=== PATIENT | male | born 1975 | race Caucasian/White ===

== ENCOUNTER 2017-04-16 13:08 | Inpatient (IN) | payer OTHER ==
[~2017-04-16] VITALS: Ht 185.4 cm; Wt 94.8 kg
--- NOTE | 2017-04-16 13:20 | NUR ---
REC'D AAOX4, SPEECH CLEAR. DENIES DIZZINES, C/O NV FOR PAST 2 DAYS. C/O HEARTBURN. ALSO STATES IS A HEAVY SMOKER AND REQUESTS PATCH. ON RA, NO SOB NOTED. NO ORDERS FOR TELE AT THIS TIME. IV SITE WNL. ORIENTED TO ROOM AND SURROUNDINGS. CALL LIGHT WITHIN REACH, PROVIDED REPORT TO KATELYNN GARCIA FOR CONTINUITY OF CARE.
[2017-04-16 13:51] VITALS: BP 102/66
[2017-04-16] MEDS ORDERED: LISINOPRIL20 MG PO (14:32)
[2017-04-16] MEDS ORDERED: CORE25 PO (14:32)
[2017-04-16] MEDS ORDERED: PRA10 PO (14:33)
--- NOTE | 2017-04-16 15:30 | NUR ---
AT 1330 - RECEIVED PATIENT FROM [facility] IN [place] VIA AMBULANCE. RECEIVED REPORT FROM JOSE GARY IN ER AT [place]. PATIENT SETTLED IN ROOM AND ATTEMPT MADE TO CONTACT DOCTOR FOR ADMISSION ORDERS. PATIENT IS AWAKE, ALERT AND ORIENTED X 4. VS WNL. AFEBRILE. RESPIRATIONS REGULAR. AT 1400 - SPOKE WITH DR WOODWARD. PATIENT HAS REQUESTED NICODERM PATCH - SAYS THAT HE SMOKES 1 PACK A DAY. AT 1435 - COMMENCED IV INFUSION OF NS AT 100 ML/HR. NICODERM PATCH APPLIED TO [facility]. DR WOODWARD AT BEDSIDE. PATIENT HAS EATEN LUNCH. NOW RESTING QUIETLY.
[2017-04-16 15:38] LABS: BASOPHIL % 0.4 % (0-2); PLATELET COUNT 194 x10^3mcL (130-400); RED CELL DISTRIBUTION WIDTH 12.4 % (11.5-14.5)
--- NOTE | 2017-04-16 15:44 | NUR ---
IV INFUSION INCREASED TO 140 ML/HR PER NEW ORDER.
[2017-04-16 16:03] LABS: FREE T4 0.96 ng/dL (0.76-1.46); T4(THYROXINE) 5.8 ug/dL (4.7-13.3)
[2017-04-16 16:06] LABS: T3 TOTAL 1.02 ng/mL
[2017-04-16 16:08] LABS: CALCIUM 7.4 mg/dL (8.5-10.1); CARBON DIOXIDE 15.8 mmol/L (21-32); MAGNESIUM 2.8 mg/dL (1.8-2.4); PHOSPHOROUS 8.4 mg/dL (2.5-4.9); POTASSIUM SERUM 4.1 mmol/L (3.5-5.1)
[2017-04-16 16:12] LABS: CHOLESTEROL/HDL RATIO 6.2
--- NOTE | 2017-04-16 16:25 | NUR ---
RECEIVED CALL FROM LAB WITH BUM/CR RESULTS OF 77/9.0. THIS IS A DOWNWARD TREND ACCORDING TO LABS RECEIVED FROM [facility]. DR WOODWARD NOTIFIED OF LATEST RESULTS. NO CHANGE IN ORDERS. PATIENT AWARE OF NEED FOR URINE SPECIMEN. CONTAINER PROVIDED.
[2017-04-16 18:00] VITALS: BP 106/74
[2017-04-16 18:25] LABS: MAGNESIUM 2.8 mg/dL (1.8-2.4); PHOSPHOROUS 7.3 mg/dL (2.5-4.9)
[2017-04-16 18:32] LABS: CALCIUM 7.5 mg/dL (8.5-10.1); CARBON DIOXIDE 18.1 mmol/L (21-32); POTASSIUM SERUM 4.1 mmol/L (3.5-5.1)
[2017-04-16 18:37] LABS: CREATININE SERUM 8.1 mg/dL (0.7-1.3)
--- NOTE | 2017-04-16 18:38 | NUR ---
RECEIVED CALL FROM LAB WITH BUN/CR OF 80/8.1 DOWNWARD TREND. PATIENT SALINE LOCKED FOR GOING TO CT FOR CT OG HEAD.
--- NOTE | 2017-04-16 19:25 | NUR ---
PATIENT BACK IN ROOM. IV INFUSION OF NS RESUMED AT 140ML/HR. URINE COLLECTED AND TAKEN TO LAB FOR UA AND UDS. CARE OF PATIENT ENDORSED TO NIGHT NURSE.
[2017-04-16 19:28] LABS: UA SPECIFIC GRAVITY 1.025 (1.005-1.035); microscopic required? YES; urine erythrocyte 1+ (NEGATIVE)
[2017-04-16 19:43] LABS: AMPHETAMINE QUAL UR NONE DETECTED (NEG <=1000)
--- NOTE | 2017-04-16 20:07 | NUR ---
RECEIVED REPORT FROM JOES PACE. PT RESTING IN BED COMFORTABLY IN NO ACUTE DISTRESS OR DISCOMFORT. AAOX4. ON TELE MON 8 SR. DENIES OF ANY CHEST DISCOMFORT. PER PULSES STRONG. NEG ON EDEMA. IN RA WITH SAT OF 97%. BREATHING EVENLY AND UNLABORED. NO SOB. LUNGS CTA. BS ACTIVE. ABD SOFT AND NON DISTENDED. VOIDS FREELY. AMBULATES STEADILY. SKIN DRY AND INTACT. DENIES OF ANY PAIN. IV ON PATENT. SAFETY MEASURES ENSURED. CALL LIGHT WITHIN REACH. WILL CONT TO MONITOR PT.
[2017-04-16 20:56] VITALS: BP 95/60
--- NOTE | 2017-04-17 05:07 | NUR ---
PT SLEPT COMFORTABLY THROUGH OUT THE NIGHT. WAS IN NO ACUTE DISTRESS OR DISCOMFORT. SAFETY MEASURES WERE ENSURED. CALL LIGHT WITHIN REACH.
[2017-04-17 05:45] VITALS: BP 102/64
[2017-04-17 06:29] LABS: CALCIUM 7.8 mg/dL (8.5-10.1); CARBON DIOXIDE 16.1 mmol/L (21-32); CREATININE SERUM 3.9 mg/dL (0.7-1.3); MAGNESIUM 2.8 mg/dL (1.8-2.4); PHOSPHOROUS 4.8 mg/dL (2.5-4.9); POTASSIUM SERUM 4.2 mmol/L (3.5-5.1)
[2017-04-17 06:45] LABS: BASOPHIL % 0.5 % (0-2); PLATELET COUNT 187 x10^3mcL (130-400); RED CELL DISTRIBUTION WIDTH 13.1 % (11.5-14.5)
--- NOTE | 2017-04-17 07:35 | NUR ---
RECEIVED PT IN NO ACUTE DISTRESS. AAOX4. BREATHING EVEN AND UNLABORED NO RA. NO SOB NOTED. DENIES DIZZINESS AT THIS TIME. IVF INFUSING. BED IN LOWEST POSITION, CALL LIGHT WITHIN REACH. WILL CONTINUE TO MONITOR.
[2017-04-17 10:28] VITALS: BP 98/58
--- NOTE | 2017-04-17 10:33 | NUR ---
DR. WOODWARD PAGED REGARDING PT'S HR DROPPING TO 37 WITH PAUSES. PT ASYMPTOMATIC AT THIS TIME. GETTING US RENAL WITH BLADDER DONE. WILL CONTINUE TO MONITOR.
[2017-04-17 12:13] LABS: CALCIUM 7.8 mg/dL (8.5-10.1); POTASSIUM SERUM 4.5 mmol/L (3.5-5.1)
--- NOTE | 2017-04-17 12:27 | NUR ---
PT RESTING IN BED. NO ACUTE DISTRESS. DENIES DIZZINESS. NO PAIN REPORTED. IVF INFUSING. FAMILY AT BEDSIDE. WILL CONTINUE TO MONITOR.
[2017-04-17 14:26] VITALS: BP 105/66
--- NOTE | 2017-04-17 18:19 | NUR ---
PT RESTING IN BED. NO ACUTE DISTRESS. DENIES DIZZINESS. AMBULATORY WITHOUT ASSIST, GAIT STEADY. DENIES PAIN. IVF INFUSING. BED IN LOWEST POSITION, CALL LIGHT WITHIN REACH. WILL CONTINUE TO MONITOR.
--- NOTE | 2017-04-17 19:36 | NUR ---
RECEIVED PT FROM PREVIOUS SHIFT NURSE. PT AOX4. TELE #8, SR, HR 74. DENIES CP/PRESSURE. PULSES PRESENT, NO EDEMA NOTED. LUNG SOUNDS CLEAR, ON RA. DENIES SOB/DIFFICULTY BREATHING. BOWEL SOUNDS ACTIVE. VOIDS FREELY. AMBULATORY. SKIN INTACT. IV IN L. HAND, INTACT AND PATENT. BED IN LOWEST POSITION. CALL LIGHT WITHIN REACH. WILL CONTINUE TO MONITOR.
[2017-04-17 20:56] VITALS: BP 116/79
--- NOTE | 2017-04-18 00:28 | NUR ---
PT RESTING IN BED. RR EVEN AND UNLABORED. NO ACUTE DISTRESS NOTED. BED IN LOWEST POSITON. CALL LIGHT WITHIN REACH. WILL CONTINUE TO MONITOR.
[2017-04-18 05:29] VITALS: BP 123/78
[2017-04-18 06:20] LABS: CARBON DIOXIDE 20.7 mmol/L (21-32); CHLORIDE SERUM 115 mmol/L (98-107); CREATININE SERUM 1.2 mg/dL (0.7-1.3); GFR1 > 60 mL/min; GLUCOSE SERUM 86 mg/dL (74-106); MAGNESIUM 2.1 mg/dL (1.8-2.4); PHOSPHOROUS 2.1 mg/dL (2.5-4.9); POTASSIUM SERUM 4.5 mmol/L (3.5-5.1); SODIUM SERUM 143 mmol/L (136-145)
[2017-04-18 06:43] LABS: BASOPHIL % 0.4 % (0-2); PLATELET COUNT 192 x10^3mcL (130-400); RED CELL DISTRIBUTION WIDTH 12.6 % (11.5-14.5)
--- NOTE | 2017-04-18 07:25 | NUR ---
RECEIVED PT. NOT IN ACUTE DISTRESS. AMBULATING TO BATHROOM. GAIT STEADY. NS INFUSING AT 200 ML/HR. BREATHING EVEN AND UNLABORED ON ROOM AIR. WILL CONTINUE TO MONITOR.
[2017-04-18 07:46] VITALS: BP 136/88
[2017-04-18 08:59] VITALS: BP 129/88
--- NOTE | 2017-04-18 09:34 | NUR ---
DR WOODWARD NOTIFIED OF PHOS 2.1. NO NEW ORDERS AT THIS TIME. WILL CONTINUE TO MONITOR.
[2017-04-18] MEDS ORDERED: NIC21 TD (11:45)
[2017-04-18] MEDS ORDERED: OSCD PO (11:46)
--- NOTE | 2017-04-18 11:53 | NUR ---
PT RESTING IN BED. NO ACUTE DISTRESS. DENIES DIZZINESS. DENIES PAIN. WILL CONTINUE TO MONITOR.
[2017-04-18 13:52] VITALS: BP 129/88
[2017-04-18 14:00] VITALS: BP 129/88
--- NOTE | 2017-04-18 14:23 | NUR ---
PT DISCHARGED TO HOME IN NO ACUTE DISTRESS. AWAKE, ALERT, AND ORIENTED. VSS. AMBULATORY. DISCHARGE EDUCATION PROVIDED, PT VERBALIZED UNDERSTANDING. INSTRUCTE PT TO FOLLOW UP WITH PCP. BELONGINGS WITH PT. IV DC'D INTACT. TELE REMOVED. YOEL BLAKE ACCOMPANIED PT TO DISCHARGE OFFICE.
== END 2017-04-18 14:27 | disposition home or self-care (01) | DRG 469 ==
LOC: DU 13:08 → MU 13:08 → DU 15:05
PROVIDERS: Family Medicine; ADMIT Family Medicine
DX: N17.0 Acute kidney failure with tubular necrosis (principal); G93.41 Metabolic encephalopathy; I42.6 Alcoholic cardiomyopathy; I95.9 Hypotension, unspecified; E44.0 Moderate protein-calorie malnutrition; E83.41 Hypermagnesemia; E83.39 Other disorders of phosphorus metabolism; E86.0 Dehydration; E83.51 Hypocalcemia; I10 Essential (primary) hypertension; F17.210 Nicotine dependence, cigarettes, uncomplicated; E78.2 Mixed hyperlipidemia; R73.03 Prediabetes; D64.9 Anemia, unspecified; R31.9 Hematuria, unspecified; H53.149 Visual discomfort, unspecified; Z53.29 Procedure and treatment not carried out because of patient's decision for other reasons; F12.90 Cannabis use, unspecified, uncomplicated; K21.9 Gastro-esophageal reflux disease without esophagitis; Z68.27 Body mass index [BMI] 27.0-27.9, adult; Z79.899 Other long term (current) drug therapy; Z82.49 Family history of ischemic heart disease and other diseases of the circulatory system
CPT/HCPCS: 83880; 84439; J7030; Q0092

== ENCOUNTER 2017-10-31 15:19 | Inpatient (IN) | payer OTHER ==
[~2017-10-31] VITALS: Ht 185.4 cm; Wt 95.7 kg
[~2017-10-31 15:19] MED LIST: CORE25 PO; LISINOPRIL20 MG PO; NIC21 TD; OSCD PO; PRA10 PO
[2017-10-31 18:14] LABS: CALCIUM 8.1 mg/dL (8.5-10.1); CARBON DIOXIDE 23.3 mmol/L (21-32); CHLORIDE SERUM 106 mmol/L (98-107); CREATININE SERUM 0.7 mg/dL (0.7-1.3); GFR1 > 60 mL/min; GLUCOSE SERUM 90 mg/dL (74-106); POTASSIUM SERUM 3.6 mmol/L (3.5-5.1); SODIUM SERUM 142 mmol/L (136-145)
[2017-10-31 18:16] LABS: BASOPHIL % 0.9 % (0-2); PLATELET COUNT 157 x10^3mcL (130-400); RED CELL DISTRIBUTION WIDTH 14.3 % (11.5-14.5)
[2017-10-31 18:18] LABS: ALBUMIN 3.6 g/dL (3.4-5.0); ALKALINE PHOSPHATASE 66 U/L (46-116); ALT/SGPT 91 U/L (16-63); AST/SGOT 76 U/L (15-37); BILIRUBIN TOTAL 0.4 mg/dL (0.20-1.00)
[2017-10-31 18:43] LABS: microscopic required? NO
[2017-10-31] MEDS ORDERED: ATIVAN1 MG PO (18:46)
[2017-10-31 19:18] LABS: UA SPECIFIC GRAVITY 1.025 (1.005-1.035); urine erythrocyte NEGATIVE (NEGATIVE)
[2017-10-31 19:27] LABS: AMPHETAMINE QUAL UR NONE DETECTED (NEG <=1000)
[2017-10-31 20:31] VITALS: BP 155/100
[2017-10-31 20:36] VITALS: Ht 185.4 cm; Wt 95.7 kg
[2017-10-31 21:48] LABS: T3 TOTAL 1.19 ng/mL
[2017-10-31 22:02] LABS: FREE THYROXINE INDEX 1.9 ug/dL (1.4-4.5); T4(THYROXINE) 5.6 ug/dL (4.7-13.3)
[2017-10-31 22:46] LABS: FREE T4 0.76 ng/dL (0.76-1.46)
[2017-10-31 22:58] LABS: MAGNESIUM 1.9 mg/dL (1.8-2.4); PHOSPHOROUS 3.6 mg/dL (2.5-4.9)
[2017-10-31 23:32] LABS: CHOLESTEROL/HDL RATIO 2.7
[2017-11-01] VITALS (7 sets, daily range): BP systolic 130–161; BP diastolic 83–110
[2017-11-01 07:52] LABS: BASOPHIL % 0.7 % (0-2); PLATELET COUNT 135 x10^3mcL (130-400); RED CELL DISTRIBUTION WIDTH 14.3 % (11.5-14.5)
[2017-11-01 08:02] LABS: CALCIUM 8.2 mg/dL (8.5-10.1); CARBON DIOXIDE 22.7 mmol/L (21-32); CHLORIDE SERUM 108 mmol/L (98-107); CREATININE SERUM 0.7 mg/dL (0.7-1.3); GFR1 > 60 mL/min; GLUCOSE SERUM 81 mg/dL (74-106); POTASSIUM SERUM 3.4 mmol/L (3.5-5.1); SODIUM SERUM 143 mmol/L (136-145)
[2017-11-02] VITALS (7 sets, daily range): BP systolic 138–159; BP diastolic 98–111
[2017-11-02 06:53] LABS: BASOPHIL % 0.5 % (0-2); PLATELET COUNT 142 x10^3mcL (130-400); RED CELL DISTRIBUTION WIDTH 14.1 % (11.5-14.5)
[2017-11-02 06:56] LABS: CALCIUM 8.4 mg/dL (8.5-10.1); CHLORIDE SERUM 107 mmol/L (98-107); CREATININE SERUM 0.7 mg/dL (0.7-1.3); GFR1 > 60 mL/min; GLUCOSE SERUM 93 mg/dL (74-106); POTASSIUM SERUM 3.2 mmol/L (3.5-5.1); SODIUM SERUM 142 mmol/L (136-145)
[2017-11-03 06:02] VITALS: BP 156/113
[2017-11-03 07:03] LABS: BASOPHIL % 0.4 % (0-2); PLATELET COUNT 139 x10^3mcL (130-400); RED CELL DISTRIBUTION WIDTH 13.6 % (11.5-14.5)
[2017-11-03 07:18] LABS: CALCIUM 8.4 mg/dL (8.5-10.1); CARBON DIOXIDE 20.4 mmol/L (21-32); CHLORIDE SERUM 109 mmol/L (98-107); CREATININE SERUM 0.6 mg/dL (0.7-1.3); GFR1 > 60 mL/min; GLUCOSE SERUM 93 mg/dL (74-106); MAGNESIUM 1.8 mg/dL (1.8-2.4); PHOSPHOROUS 3.9 mg/dL (2.5-4.9); POTASSIUM SERUM 3.4 mmol/L (3.5-5.1); SODIUM SERUM 142 mmol/L (136-145)
[2017-11-03 08:42] VITALS: BP 124/89
[2017-11-03] MEDS ORDERED: CHLORDIAZEPOXID10 MG PO ×2 (10:26→10:43)
[2017-11-03 13:35] VITALS: BP 124/89
[2017-11-03 13:41] VITALS: BP 131/97
== END 2017-11-03 16:05 | disposition home or self-care (01) | DRG 775 ==
LOC: ED 15:19 → DU 18:43
PROVIDERS: Emergency Medicine; Family Medicine; Student in an Organized Health Care Education/Training Program
DX: F10.229 Alcohol dependence with intoxication, unspecified (principal); G92 Toxic encephalopathy; I10 Essential (primary) hypertension; I42.9 Cardiomyopathy, unspecified; F12.10 Cannabis abuse, uncomplicated; Y90.9 Presence of alcohol in blood, level not specified; E78.5 Hyperlipidemia, unspecified; Z82.49 Family history of ischemic heart disease and other diseases of the circulatory system; F13.239 Sedative, hypnotic or anxiolytic dependence with withdrawal, unspecified; F17.200 Nicotine dependence, unspecified, uncomplicated; E87.6 Hypokalemia
CPT/HCPCS: 83880; 84439; G0480; J0360; J2060; J7030; Q0092

== ENCOUNTER 2019-05-04 20:25 | Emergency (ER) | payer SELFPAY ==
[~2019-05-04] VITALS: Ht 185.4 cm; Wt 81.2 kg
[~2019-05-04 20:25] MED LIST changes: +ATIVAN1 MG PO; +CHLORDIAZEPOXID10 MG PO
[2019-05-04 20:26] VITALS: Ht 185.4 cm; Wt 81.2 kg
[2019-05-04 21:01] LABS: BASOPHIL % 0.2 % (0-2); PLATELET COUNT 178 x10^3mcL (130-400); RED CELL DISTRIBUTION WIDTH 12.6 % (11.5-14.5)
[2019-05-04 21:04] LABS: CALCIUM 8.7 mg/dL (8.5-10.1); CARBON DIOXIDE 19.3 mmol/L (21-32); CHLORIDE SERUM 100 mmol/L (98-107); GFR1 > 60 mL/min; GLUCOSE SERUM 115 mg/dL (74-106); POTASSIUM SERUM 3.6 mmol/L (3.5-5.1); SODIUM SERUM 135 mmol/L (136-145)
[2019-05-04 21:20] LABS: ALBUMIN 3.8 g/dL (3.4-5.0); ALKALINE PHOSPHATASE 38 U/L (46-116); ALT/SGPT 31 U/L (16-63); AST/SGOT 25 U/L (15-37); BILIRUBIN TOTAL 0.9 mg/dL (0.20-1.00); TOTAL PROTEIN, SERUM 6.8 g/dL (6.4-8.2)
[2019-05-04 22:32] VITALS: BP 114/81
== END 2019-05-04 22:32 | disposition home or self-care (01) ==
LOC: ED 20:25
PROVIDERS: Emergency Medicine
DX: L03.113 Cellulitis of right upper limb (principal)
CPT/HCPCS: A4570; J0696; J1885; J2270; J2405; J7030; J7060; Q0092